=== PATIENT | male | born 1985 | race Caucasian/White ===

== ENCOUNTER 2019-01-07 02:43 | Emergency (ER) | payer OTHER ==
[~2019-01-07] VITALS: Ht 170.2 cm; Wt 56.2 kg
[2019-01-07 02:47] VITALS: Ht 170.2 cm; Wt 56.2 kg
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
[2019-01-07] MEDS ORDERED: IBUP800T48 PO (05:07)
[2019-01-07 05:34] VITALS: BP 120/78; PULSE 68; RESP 18
== END 2019-01-07 06:05 | disposition home or self-care (01) ==
LOC: FTE 02:43
DX: S02.40DA Maxillary fracture, left side, initial encounter for closed fracture (principal); S02.2XXA Fracture of nasal bones, initial encounter for closed fracture; Y04.0XXA Assault by unarmed brawl or fight, initial encounter
CPT/HCPCS: 70450; 70486; Z7502